=== PATIENT | male | born 1975 | race Two or more races ===

== ENCOUNTER → 2019-12-30 | Outpatient (REF) | payer OTHER | LOC: M LAB REF 17:18 | PROVIDERS: ATTEND Registered Nurse | DX: E78.00 Pure hypercholesterolemia, unspecified (principal) ==

== ENCOUNTER → 2021-01-17 | Outpatient (CLI) | payer OTHER ==
--- NOTE | 2021-01-18 03:50 | REP ---
INDICATION: LT INGUINAL BLUDGE ? HERNIA COMPARISON: None. TECHNIQUE: Directed B-mode ultrasound examination using linear high-frequency transducer FINDINGS: Ultrasound examination of the left and right groin demonstrates normal inguinal canal and no evidence for hernia. No abnormal fluid collection or mass lesion identified. IMPRESSION: Normal examination. <Electronically signed by Neville Gomez > 01/18/21 1809
== END ==
LOC: M RAD 13:37
PROVIDERS: ATTEND Registered Nurse
DX: R19.09 Other intra-abdominal and pelvic swelling, mass and lump (principal)

== ENCOUNTER → 2021-03-20 | Outpatient (CLI) | payer OTHER ==
[~2021-03-20] MED LIST: GASTROGRAFIN SOLUTION 30ML (Q9963) As Ordered ONE; ISOVUE-370 76% 100ML VIAL As Ordered ONE
--- NOTE | 2021-03-20 16:05 | REP ---
INDICATION: LT INGUINAL MASS. COMPARISON: None TECHNIQUE: Axial contrast-enhanced images from the lung bases to the pubic symphysis using oral and 100 cc Isovue 370 intravenous contrast material. Precontrast images of the abdomen along with coronal and sagittal reformations obtained. This CT examination was performed using the following dose reduction techniques: Automated exposure control, adjustment of mA and/or kv according to the patient's size, and the use of iterative reconstruction technique. FINDINGS: Lung bases are clear. Liver, spleen, pancreas, gallbladder, bilateral adrenal glands and kidneys are normal. The enteric system demonstrates significant fecal stasis which should be correlated with physical examination to exclude constipation. There is no evidence for bowel obstruction or acute inflammatory process. Pelvis demonstrates normal bladder and age-appropriate prostate/seminal vesicles. No evidence for hernia. No ascites. No free air. No intraperitoneal or retroperitoneal adenopathy. Abdominal aorta and vasculature appear normal. Musculoskeletal structures are intact and without acute osseous abnormality. IMPRESSION: No acute abdominopelvic pathology appreciated. Current examination suggests constipation and correlation is required. No evidence for inguinal hernia or obvious significant pathology. <Electronically signed by Neville Gomez > 03/20/21 0776
== END ==
LOC: M RAD 13:30
PROVIDERS: ATTEND Registered Nurse
DX: R19.04 Left lower quadrant abdominal swelling, mass and lump (principal)
CPT/HCPCS: 74178; Q9963; Q9967